=== PATIENT | female | born 1980 | race Caucasian/White ===

== ENCOUNTER 2018-01-01 17:52 | Emergency (ER) | payer SELFPAY ==
[2018-01-01] MEDS ORDERED: Ibuprofen 800 MG TAB ONE (18:01)
[2018-01-01] MEDS ORDERED: Acetaminophen 500 MG TAB ONE (18:13)
[2018-01-01] MEDS ORDERED: Amoxicillin/Potassium Clav 875 MG TAB ONE (18:23)
--- NOTE | 2018-01-01 18:49 | RAD ---
TWO VIEW CHEST: HISTORY: Cough. FINDINGS: The lung bucio are clear. Heart and mediastinum are unremarkable. Osseous structures are unremarka ble. IMPRESSION: No acute finding. POS: [facility]
== END 2018-01-01 18:43 | disposition home or self-care (01) ==
LOC: NAV ERS 17:52
DX: J20.9 Acute bronchitis, unspecified (principal); J01.90 Acute sinusitis, unspecified
CPT/HCPCS: 71046